=== PATIENT | male | born 1990 | race Caucasian/White ===

== ENCOUNTER 2017-03-23 19:42 | Emergency (ER) | payer OTHER ==
[2017-03-23 20:01] VITALS: BP 130/86; PULSE 89; RESP 20; TEMP 98.4; O2SAT 100
--- NOTE | 2017-03-23 20:53 | C.PDOC ---
History Of Present Illness 26yo male, presents to ED with complaints of right throat pain for the past 8 days and right ear pain for the past 4 days. Patient states he has throat pain when he swallows and has not taken any medications for the pain. He denies any fever or chills. Patient has no other medical complaints. Time Seen by Provider: 03/23/17 20:07 Chief Complaint (Nursing): ENT Problem History Per: Patient Onset/Duration Of Symptoms: Days Current Symptoms Are (Timing): Still Present Location Of Pain: Ear(s), Throat Associated Symptoms: Sore Throat Past Medical History Reviewed: Historical Data, Nursing Documentation, Vital Signs Vital Signs: Last Vital Signs Temp 98.4 F 03/23/17 19:59 Pulse 89 03/23/17 19:59 Resp 20 03/23/17 21:16 BP 130/86 03/23/17 19:59 Pulse Ox 100 03/23/17 21:07 - Medical History PMH: HTN Surgical History: No Surg Hx Family History: States: No Known Family Hx - Social History Hx Tobacco Use: No Hx Alcohol Use: No Hx Substance Use: No - Immunization History Hx Tetanus Toxoid Vaccination: No Hx Influenza Vaccination: No Hx Pneumococcal Vaccination: No Review Of Systems ENT: Positive for: Ear Pain (right), Throat Pain Physical Exam - Physical Exam Appears: Non-toxic Skin: Warm, Dry Eye(s): bilateral: Normal Inspection Ear(s): Bilateral: Normal (TM clear), Other (no tragus tenderness) Nose: Normal, No Discharge Oral Mucosa: Moist Tongue: Normal Appearing Throat: Erythema, No Exudate, No Drooling Neck: Normal ROM, Supple Cardiovascular: Rhythm Regular, No Murmur Respiratory: Normal Breath Sounds, No Rales, No Rhonchi, No Wheezing ED Course And Treatment O2 Sat by Pulse Oximetry: 100 (RA) Pulse Ox Interpretation: Normal Medical Decision Making Medical Decision Making: Plan: -- Motrin 600 mg PO -- Rapid strep 904 pm rapid strep neg; d/c with supportive care and clinic f/u Disposition Counseled Patient/Family Regarding: Studies Performed, Diagnosis, Need For Followup - Disposition Referrals: at [facility] [Outside] Disposition: HOME/ ROUTINE Disposition Time: 21:04 Condition: STABLE Additional Instructions: Please gargle with warm salty water several times a day. Take Ibuprofen as prescribed for pain if needed. Follow up in medical clinic in a few days if pain persists. Drink incresed fluids, such as tea with lemon and honey. Prescriptions: Ibuprofen [Motrin] 600 mg PO TID #30 tab Instructions: Pharyngitis (ED) Forms: [facility] ([facility]), General Discharge Instructions - Clinical Impression Clinical Impression: Pharyngitis
== END 2017-03-23 21:16 | disposition home or self-care (01) ==
LOC: C.ER 19:42
DX: J02.9 Acute pharyngitis, unspecified (principal); I10 Essential (primary) hypertension